=== PATIENT | female | born 1985 | race African-American/Black ===

== ENCOUNTER 2019-02-16 21:25 | Emergency (ER) | payer SELFPAY ==
[2019-02-17] MEDS ORDERED: Cephalexin 250 MG CAP ONE ×3 (07:16→19:14)
[2019-02-17] MEDS ORDERED: hydrOXYzine Pamoate 25 mg Capsule ONE (19:14)
== END 2019-02-17 21:52 | disposition home or self-care (01) ==
LOC: ERS 21:25
DX: F19.10 Other psychoactive substance abuse, uncomplicated (principal); N39.0 Urinary tract infection, site not specified; F23 Brief psychotic disorder; F31.9 Bipolar disorder, unspecified; F17.200 Nicotine dependence, unspecified, uncomplicated; Z79.899 Other long term (current) drug therapy
CPT/HCPCS: 99285; Q0177